=== PATIENT | female | born 1995 | race Caucasian/White ===

== ENCOUNTER 2017-12-11 23:31 | Emergency (ER) | payer OTHER ==
[2017-12-12] MEDS ORDERED: NORMAL SALINE 1000 ML 1,000 ML IV ONE (01:26)
[2017-12-12] MEDS ORDERED: ONDANSETRON HCL INJ/PF 4 MG/2 ML SDV IV ONE (01:27)
--- NOTE | 2017-12-12 01:29 | ER Document Report ---
ED Medical Screen (RME) - General Chief Complaint: Nausea/Vomiting Stated Complaint: NAUSEA/VOMITING Time Seen by Provider: 12/12/17 01:26 Notes: 22-year-old female chief complaint of vomiting 20 times today, started to vomit a little bit of blood, denies diarrhea, reports sharp mid abdominal pain. No obvious sick contacts, no fever. Currently on her cycle. No daily medications , no surgeries, no reported past medical history. TRAVEL OUTSIDE OF THE [place] IN LAST 30 DAYS: No - Related Data Allergies/Adverse Reactions: No Known Allergies Allergy (Unverified 12/11/17 23:34) Physical Exam - Vital signs Vitals: Temp Pulse Resp BP Pulse Ox 97.9 F 64 16 108/70 100 12/11/17 23:36 12/11/17 23:36 12/11/17 23:36 12/11/17 23:36 12/11/17 23:36 - Abdominal Tenderness: Tender - Tender with palpation of the abdomen in the mid upper abdomen the most, lower abdomen seems benign, exam limited by sitting position Course - Re-evaluation Re-evalutation: Patient shaky and somewhat ill-appearing, dry mucous membranes, tender across her abdomen, nonspecific exam on a chair. - Vital Signs Vital signs: Temp Pulse Resp BP Pulse Ox 97.9 F 64 16 108/70 100 12/11/17 23:36 12/11/17 23:36 12/11/17 23:36 12/11/17 23:36 12/11/17 23:36 Doctor's Discharge - Discharge Referrals: VERONICA MCINTOSH DO [Primary Care Provider] - Follow up as needed
[2017-12-12 02:09] LABS: ABSOLUTE LYMPHOCYTES (AUTO) 1.4 10^3/uL (0.5-4.7); ABSOLUTE MONOCYTES (AUTO) 0.6 10^3/uL (0.1-1.4); ABSOLUTE NEUT (AUTO) 12.7 10^3/uL (1.7-8.2); BASOPHILS % (AUTO) 0.2 % (0-2); HEMATOCRIT 42.5 % (36.0-47.0); HEMOGLOBIN 14.7 g/dL (12.0-15.5); LYMPHOCYTES % (AUTO) 9.7 % (13-45); MEAN CORPUSCULAR HEMOGLOBIN 30.5 pg (27.0-33.4); MEAN CORPUSCULAR HGB CONC 34.6 g/dL (32.0-36.0); MEAN CORPUSCULAR VOLUME 88 fl (80-97); MONOCYTES % (AUTO) 4.3 % (3-13); PLATELET COUNT 257 10^3/uL (150-450); RED BLOOD COUNT 4.83 10^6/uL (3.72-5.28); SEGMENTED NEUTROPHILS % (AUTO) 85.8 % (42-78); TOTAL CELLS COUNTED % (AUTO) 100 %; WHITE BLOOD COUNT 14.8 10^3/uL (4.0-10.5)
[2017-12-12 02:19] LABS: APPEARANCE,URINE SLIGHTLY-CLOUDY; BILIRUBIN,URINE SMALL (NEGATIVE); COLOR,URINE YELLOW; GLUCOSE, URINE NEGATIVE (NEGATIVE); KETONES,URINE 80 mg/dL (NEGATIVE); LEUKOCYTE ESTERASE,URINE NEGATIVE (NEGATIVE); NITRITE,URINE NEGATIVE (NEGATIVE); PROTEIN,URINE 100 mg/dL (NEGATIVE); URINE SPECIFIC GRAVITY 1.031
[2017-12-12 02:24] LABS: ALANINE AMINOTRANSFERASE 24 U/L (9-52); ALBUMIN 5.1 g/dL (3.5-5.0); ALKALINE PHOSPHATASE 75 U/L (38-126); ANION GAP 17 (5-19); ASPARTATE AMINO TRANSFERASE 25 U/L (14-36); BILIRUBIN,DIRECT 0.5 mg/dL (0.0-0.4); BLOOD UREA NITROGEN 12 mg/dL (7-20); CALCIUM 10.7 mg/dL (8.4-10.2); CARBON DIOXIDE 19 mmol/L (22-30); CHLORIDE 105 mmol/L (98-107); GLUCOSE 125 mg/dL (75-110); LIPASE 75.4 U/L (23-300); POTASSIUM 3.3 mmol/L (3.6-5.0); SODIUM 140.5 mmol/L (137-145); TOTAL PROTEIN 8.3 g/dL (6.3-8.2)
[2017-12-12] MEDS ORDERED: PROMETHAZINE HCL 25 MG TABLET PO ONE (04:30)
[2017-12-12] MEDS ORDERED: SUCRALFATE 1 GM TABLET PO ONE (04:30)
[2017-12-12] MEDS ORDERED: FAMOTIDINE 20 MG TABLET PO ONE (04:30)
--- NOTE | 2017-12-12 05:39 | ER Document Report ---
ED GI/ - General Chief Complaint: Nausea/Vomiting Stated Complaint: NAUSEA/VOMITING Time Seen by Provider: 12/12/17 01:26 Notes: Patient is a 22-year-old female chief complaint of vomiting 20 times today, started to vomit a little bit of blood, denies diarrhea, reports sharp mid abdominal pain. No obvious sick contacts, no fever. Currently on her cycle. No daily medications, no surgeries, no reported past medical history. She smokes, denies alcohol, denies recreational drugs. TRAVEL OUTSIDE OF THE [place] IN LAST 30 DAYS: No - Related Data Allergies/Adverse Reactions: No Known Allergies Allergy (Unverified 12/11/17 23:34) Past Medical History - General Information source: Patient - Social History Smoking Status: Current Every Day Smoker Chew tobacco use (# tins/day): No Smoking Education Provided: Yes - <3 min Frequency of alcohol use: None Drug Abuse: None Lives with: Family Family History: Reviewed & Not Pertinent Patient has suicidal ideation: No Patient has homicidal ideation: No Renal/ Medical History: Denies: Hx Peritoneal Dialysis GI Medical History: Reports: Hx Gastroesophageal Reflux Disease Surgical Hx: Negative - Immunizations Immunizations up to date: Yes Hx Diphtheria, Pertussis, Tetanus Vaccination: Yes Review of Systems - Review of Systems Constitutional: No symptoms reported EENT: No symptoms reported Cardiovascular: No symptoms reported Respiratory: No symptoms reported Gastrointestinal: See HPI Genitourinary: No symptoms reported Female Genitourinary: No symptoms reported Musculoskeletal: No symptoms reported Skin: No symptoms reported Hematologic/Lymphatic: No symptoms reported Neurological/Psychological: No symptoms reported Physical Exam - Vital signs Vitals: Temp Pulse Resp BP Pulse Ox 97.9 F 64 16 108/70 100 12/11/17 23:36 12/11/17 23:36 12/11/17 23:36 12/11/17 23:36 12/11/17 23:36 - Notes Notes: GENERAL: Alert, interacts well. No acute distress. HEAD: Normocephalic, atraumatic. EYES: Pupils equal, round, and reactive to light. Extraocular movements intact. ENT: Oral mucosa dry, tongue midline. Mild erythema of the posterior pharynx. NECK: Full range of motion. Supple. Trachea midline. LUNGS: Clear to auscultation bilaterally, no wheezes, rales, or rhonchi. No respiratory distress. HEART: Regular rate and rhythm. No murmur ABDOMEN: Soft, non-tender. Non-distended. Bowel sounds present in all 4 quadrants. EXTREMITIES: Moves all 4 extremities spontaneously. No edema, normal radial and dorsalis pedis pulses bilaterally. No cyanosis. BACK: no cervical, thoracic, lumbar midline tenderness. No saddle anesthesia, normal distal neurovascular exam. NEUROLOGICAL: Alert and oriented x3. Normal speech. [cranial nerves II through XII grossly intact]. PSYCH: Normal affect, normal mood. SKIN: Warm, dry, normal turgor. No rashes or lesions noted. Course - Re-evaluation Re-evalutation: After Zofran and IV fluids patient sitting up, states she has feels great now. She is not tachycardic, hypotensive, or febrile. CBC shows mild leukocytosis, chemistry nonspecific with low bicarbonate, urine shows lots of ketones and elevated specific gravity. Abdomen is actually very soft and benign with no tenderness whatsoever. On further questioning patient states that almost every morning she gets up and then feels nauseated or vomits. She states that she does feel like she has tons of reflux problems. She has never had endoscopy but she does have primary care. She is not on any antacids. She drinks large amounts of caffeine. I discussed gastritis, treatment, details, follow-up and instructions in detail with patient. She tolerated p.o. without any difficulty. Patient states satisfaction and agreement with plan. - Vital Signs Vital signs: Temp Pulse Resp BP Pulse Ox 98.2 F 55 L 16 124/64 99 12/12/17 06:09 12/12/17 06:09 12/12/17 06:09 12/12/17 06:09 12/12/17 06:09 - Laboratory Result Diagrams: 12/12/17 01:48 12/12/17 01:48 Laboratory results interpreted by me: 12/12/17 12/12/17 12/12/17 01:48 01:48 01:56 WBC 14.8 H Seg Neutrophils % 85.8 H Lymphocytes % 9.7 L Absolute Neutrophils 12.7 H Potassium 3.3 L Carbon Dioxide 19 L Glucose 125 H Calcium 10.7 H Total Bilirubin 2.0 H Direct Bilirubin 0.5 H Total Protein 8.3 H Albumin 5.1 H Urine Protein 100 H Urine Ketones 80 H Urine Blood SMALL H Urine Bilirubin SMALL H Urine Urobilinogen 2.0 H Discharge - Discharge Clinical Impression: Dehydration, Upper abdominal pain Vomiting Qualifiers: Vomiting type: unspecified Vomiting Intractability: non-intractable Nausea presence: with nausea Qualified Code(s): R11.2 - Nausea with vomiting, unspecified Condition: Stable Disposition: HOME, SELF-CARE Additional Instructions: Your lab workup indicates dehydration, your symptoms and examination indicate gastritis and esophagitis (inflammation of your upper gastrointestinal tract). Take Phenergan for nausea, take Carafate and Pepcid as prescribed to help treat this, you can take additional Rolaids, Tums, Maalox, etc. if needed. You can take Tylenol for pain. Avoid NSAIDs, alcohol, smoking, caffeine, spicy food. Start with clear fluids, progress to bland diet. Follow-up with primary care for additional evaluation and treatment including possible H. pylori testing. Return if you worsen including uncontrolled vomiting, vomiting blood, black stools, severe pain, fever for 100.4 or greater , or any other concerning or worsening symptoms. Prescriptions: Famotidine [Pepcid 20 mg Tablet] 20 mg PO BID #20 tablet Promethazine HCl [Phenergan 25 mg Tablet] 25 mg PO Q6H PRN #20 tablet PRN Reason: Sucralfate [Carafate 1 gm Tablet] 1 gm PO QID #20 tablet Forms: Return to Work Referrals: VERONICA MCINTOSH DO [Primary Care Provider] - Follow up as needed
[2017-12-12 06:10] VITALS: BP 124/64
== END 2017-12-12 06:13 | disposition home or self-care (01) ==
LOC: ER 23:31
DX: E86.0 Dehydration (principal); R10.10 Upper abdominal pain, unspecified; R11.2 Nausea with vomiting, unspecified; F17.200 Nicotine dependence, unspecified, uncomplicated
CPT/HCPCS: 99284; 96361; 96374; 36415; 83690; 84703; 85025; 80053; 81001; J2405

== ENCOUNTER 2019-03-25 23:52 | Emergency (ER) | payer SELFPAY ==
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
[2019-03-26 01:08] LABS: ALKALINE PHOSPHATASE 106 U/L (38-126); ANION GAP 14 (5-19); ASPARTATE AMINO TRANSFERASE 38 U/L (14-36); BILIRUBIN,DIRECT 0.1 mg/dL (0.0-0.4); BILIRUBIN,TOTAL 2.1 mg/dL (0.2-1.3); BLOOD UREA NITROGEN 19 mg/dL (7-20); CALCIUM 9.8 mg/dL (8.4-10.2); CARBON DIOXIDE 30 mmol/L (22-30); CHLORIDE 95 mmol/L (98-107); GLUCOSE 98 mg/dL (75-110); TOTAL PROTEIN 8.6 g/dL (6.3-8.2)
--- NOTE | 2019-03-26 01:13 | RADIOLOGY REPORT (SQ) ---
EXAM DESCRIPTION: X-RAY CHEST- One View CLINICAL HISTORY: Chest pain COMPARISON: None available TECHNIQUE: Single view of the chest. FINDINGS: There are overlying EKG leads. There are no discrete air space infiltrates, pneumothoraces or pleural effusions. The pulmonary vascularity is normal. The cardiomediastinal silhouette is normal in size. No suspicious lytic or blastic osseous lesions are identified. IMPRESSION: There are no acute lung parenchymal findings.
[2019-03-26 01:15] LABS: ABSOLUTE BASOPHILS # (AUTO) 0.1 10^3/uL (0.0-0.2); ABSOLUTE LYMPHOCYTES (AUTO) 3.4 10^3/uL (0.5-4.7); ABSOLUTE MONOCYTES (AUTO) 1.6 10^3/uL (0.1-1.4); ABSOLUTE NEUT (AUTO) 7.3 10^3/uL (1.7-8.2); BASOPHILS % (AUTO) 0.9 % (0-2); EOSINOPHILS % (AUTO) 0.2 % (0-6); HEMATOCRIT 47.2 % (36.0-47.0); HEMOGLOBIN 16.3 g/dL (12.0-15.5); LYMPHOCYTES % (AUTO) 27.2 % (13-45); MEAN CORPUSCULAR HEMOGLOBIN 28.7 pg (27.0-33.4); MEAN CORPUSCULAR HGB CONC 34.5 g/dL (32.0-36.0); MEAN CORPUSCULAR VOLUME 83 fl (80-97); MONOCYTES % (AUTO) 12.9 % (3-13); PLATELET COUNT 305 10^3/uL (150-450); RED BLOOD COUNT 5.68 10^6/uL (3.72-5.28); RED CELL DISTRIBUTION WIDTH 14.2 % (11.5-14.0); SEGMENTED NEUTROPHILS % (AUTO) 58.8 % (42-78); TOTAL CELLS COUNTED % (AUTO) 100 %; WHITE BLOOD COUNT 12.5 10^3/uL (4.0-10.5)
[2019-03-26 01:22] LABS: CREATINE KINASE < 20 U/L (30-135)
[2019-03-26 01:24] LABS: CREATINE KINASE MB < 0.22 ng/mL (<4.55); TROPONIN I < 0.012 ng/mL
[2019-03-26 01:31] LABS: APPEARANCE,URINE CLOUDY; BILIRUBIN,URINE NEGATIVE (NEGATIVE); COLOR,URINE AMBER; GLUCOSE, URINE NEGATIVE (NEGATIVE); KETONES,URINE NEGATIVE (NEGATIVE); LEUKOCYTE ESTERASE,URINE TRACE (NEGATIVE); NITRITE,URINE NEGATIVE (NEGATIVE); PROTEIN,URINE 30 mg/dL (NEGATIVE); URINE SPECIFIC GRAVITY 1.024
[2019-03-26] MEDS ORDERED: POTASSIUM CHLORIDE 10 MEQ TABLET.ER PO ONE (01:32)
[2019-03-26 02:24] LABS: URINE AMPHETAMINES SCREEN NEGATIVE; URINE BARBITURATES SCREEN NEGATIVE; URINE BENZODIAZEPINES SCREEN NEGATIVE; URINE COCAINE SCREEN NEGATIVE; URINE METHADONE SCREEN NEGATIVE; URINE PHENCYCLIDINE SCREEN NEGATIVE
[2019-03-26 02:25] LABS: URINE MARIJUANA (THC) SCREEN UNCONFIRMED POSITIVE
[2019-03-26 02:31] VITALS: BP 127/116
--- NOTE | 2019-03-26 10:08 | EKG REPORT ---
SEVERITY:- ABNORMAL ECG - SINUS RHYTHM SHORT MD INTERVAL, ACCELERATED AV CONDUCTION CONSIDER LEFT VENTRICULAR HYPERTROPHY INFERIOR Q WAVES, PROBABLY NORMAL VARIATION ABNORMAL T, CONSIDER ISCHEMIA, ANT-LAT LEADS, NO OLED EKG FOR COMPARISON, CLINICAL CORRELATION NEEDED : Confirmed by: Cooper Miles MD 26-Mar-2019 10:08:19
== END 2019-03-26 02:39 | disposition home or self-care (01) ==
LOC: ER 23:52
DX: R07.9 Chest pain, unspecified (principal); E87.6 Hypokalemia; F11.10 Opioid abuse, uncomplicated; F41.9 Anxiety disorder, unspecified; F17.210 Nicotine dependence, cigarettes, uncomplicated
CPT/HCPCS: 36415; 71045; 80053; 80307; 81001; 81025; 82550; 82553; 84484; 85025; 93005; 93010; 99291